=== PATIENT | male | born 1990 | race Caucasian/White ===

== ENCOUNTER 2023-03-07 22:52 | Emergency (ER) | payer MEDICAID, OTHER ==
[~2023-03-07] VITALS: Ht 175.3 cm; Wt 96.1 kg
[2023-03-07 23:35] LABS: BASOPHILS % 0.3 % (0.0-2.0); EOSINOPHILS % 3.8 % (0.0-5.0); HEMATOCRIT. 43.9 % (42.0-52.0); HEMOGLOBIN. 15.8 g/dL (14.0-18.0); LYMPHOCYTES % 20.6 % (20.0-50.0); MEAN CORPUSCULAR HEMOGLOBIN 28.3 pg (28.0-32.0); MEAN CORPUSCULAR VOLUME 78.9 fL (80.0-94.0); MEAN PLATELET VOLUME 9.1 fl (7.4-10.4); MONOCYTES % 5.6 % (2.0-8.0); NEUTROPHILS % 69.7 % (40.0-76.0); PLATELET 231 x1000/uL (130-400); RED BLOOD CELL COUNT 5.57 mill/uL (4.7-6.1); RED CELL DISTRIBUTION WIDTH 13.3 % (11.6-14.6)
[2023-03-07 23:44] LABS: PARTIAL THROMBOPLASTIN TIME 25.5 sec (23.4-31.0); PROTHROMBIN TIME 10.3 sec (9.6-11.0)
[2023-03-07 23:45] LABS: CHLORIDE 103 mEq/L (98-107)
[2023-03-08] MEDS ORDERED: ONDA4TAB50 MT (02:06)
[2023-03-08] MEDS ORDERED: ALBUTEROL (0.083%) 2.5MG/3ML NEB HHN ONE (02:15)
[2023-03-08] MEDS ORDERED: ONDANSETRON 4MG ODT PO ONE (02:15)
[2023-03-08 04:14] VITALS: BP 118/73
== END 2023-03-08 04:25 | disposition home or self-care (01) ==
LOC: ER 22:52
DX: J40 Bronchitis, not specified as acute or chronic (principal); E11.9 Type 2 diabetes mellitus without complications
CPT/HCPCS: 36415; 71045; 80053; 84484; 85025; 85610; 85730; 93005; 94640; 99285; Q0162; Z7610

== ENCOUNTER 2024-05-18 18:59 | Emergency (ER) | payer MEDICAID, OTHER ==
[~2024-05-18] VITALS: Ht 182.9 cm; Wt 89.0 kg
[~2024-05-18 18:59] MED LIST: DEXTL MT; ONDA4TAB50 MT
[2024-05-18 19:00] VITALS: BP 143/97; PULSE 86; RESP 20; TEMP 98.1; O2SAT 100; O2SAT 99
[2024-05-18] MEDS: TETRACAINE 0.5% OPHTH DROPS 4ML BOTHEYE ONE (21:25)
[2024-05-18] MEDS: FLUORESCEIN SODIUM 1MG/STRIP BOTHEYE ONE (21:25)
[2024-05-18] MEDS ORDERED: OCUFLX LEFTEYE (21:30)
[2024-05-18] MEDS ORDERED: POLY15DR31 LEFTEYE (21:31)
== END 2024-05-18 22:08 | disposition home or self-care (01) ==
LOC: ER 18:59
DX: H57.11 Ocular pain, right eye (principal); S05.02XA Injury of conjunctiva and corneal abrasion without foreign body, left eye, initial encounter; J45.909 Unspecified asthma, uncomplicated; E11.9 Type 2 diabetes mellitus without complications; Z86.73 Personal history of transient ischemic attack (TIA), and cerebral infarction without residual deficits; X58.XXXA Exposure to other specified factors, initial encounter; Y93.89 Activity, other specified; Y92.89 Other specified places as the place of occurrence of the external cause; Y99.8 Other external cause status
CPT/HCPCS: 99283

== ENCOUNTER 2024-12-07 18:56 | Emergency (ER) | payer MEDICAID ==
[~2024-12-07] VITALS: Ht 177.8 cm; Wt 94.0 kg
[~2024-12-07 18:56] MED LIST changes: +OCUFLX LEFTEYE; +POLY15DR31 LEFTEYE
[2024-12-07 19:27] VITALS: O2SAT 99
[2024-12-07] MEDS: MAGNESIUM/ALUMINUM HYDROXIDE/SIMETHICONE 30ML UDC PO ONE (21:18)
[2024-12-07] MEDS: VISCOUS LIDOCAINE 2% 15 ML UDC MM STA (21:18)
[2024-12-07] MEDS ORDERED: OMEP20CA14 MT (21:28)
[2024-12-07] MEDS ORDERED: MAG355OR21 MT (21:28)
[2024-12-07 21:43] VITALS: BP 127/82; PULSE 95; RESP 16; TEMP 36.7; O2SAT 99
== END 2024-12-07 21:43 | disposition home or self-care (01) ==
LOC: ER 18:56
DX: K29.70 Gastritis, unspecified, without bleeding (principal); J45.909 Unspecified asthma, uncomplicated; E11.9 Type 2 diabetes mellitus without complications; Z86.73 Personal history of transient ischemic attack (TIA), and cerebral infarction without residual deficits; Z79.899 Other long term (current) drug therapy
CPT/HCPCS: 99283